=== PATIENT | male | born 1955 | race Caucasian/White ===

== ENCOUNTER → 2019-03-07 | Outpatient (CLI) | payer OTHER ==
[~2019-03-07] MED LIST: PROHANCE 279.3MG/ML 15ML VIAL (A9576) As Ordered ONE
--- NOTE | 2019-03-07 09:40 | REP ---
MRI of the brain without and with contrast Indication: Hearing loss. Sensorineural hearing loss, bilateral. Comparison: None Technique: MRI of the brain was performed without and with contrast utilizing IAC protocol. A total of 14.4 ml of ProHance was administered intravenously. Findings: Brain: There is no restricted diffusion to suggest acute ischemia or infarction. The ventricles and sulci are symmetric. There is no extra-axial fluid collection. There is no mass effect. There is no midline shift or basal cistern effacement. The visualized flow voids are preserved. The visualized paranasal sinuses are clear. IACs: The external auditory canals, middle ears cavities and internal auditory canals are unremarkable. The semicircular canals and cochlea are normal in signal intensity. There is no cerebellar pontine angle mass. There is no abnormal enhancement. Impression: Unremarkable MRI of the brain and internal auditory canals. No abnormal enhancement. Electronically Signed by Ninoska Burdick MD 03/07/2019 09:32 A
== END ==
LOC: M RAD 07:46
PROVIDERS: ATTEND Otolaryngology
DX: H91.90 Unspecified hearing loss, unspecified ear (principal)

== ENCOUNTER → 2019-03-28 | Outpatient (REF) | payer OTHER ==
[2019-03-28 13:37] LABS: PERCENT SATURATION 40.1 % (19.7-50.0)
== END ==
LOC: M LAB REF 12:42
PROVIDERS: ATTEND Internal Medicine
DX: M25.562 Pain in left knee (principal); M17.10 Unilateral primary osteoarthritis, unspecified knee; Z01.818 Encounter for other preprocedural examination; D63.8 Anemia in other chronic diseases classified elsewhere

== ENCOUNTER → 2019-09-04 | Outpatient (REF) | payer OTHER ==
[2019-09-04 17:38] LABS: ALBUMIN 4.5 GM/DL (3.2-5.2); PHOSPHORUS LEVEL 2.6 MG/DL (2.5-4.9)
== END ==
LOC: M LAB REF 16:20
PROVIDERS: ATTEND Internal Medicine
DX: B35.1 Tinea unguium (principal); Z79.899 Other long term (current) drug therapy

== ENCOUNTER → 2022-06-01 | Outpatient (CLI) | payer MEDICARE, OTHER ==
[~2022-06-01] MED LIST changes: +BENA25CA4 PO; +DYMI137S; +FLUTISP; +NAPR-885 PO; +OMEP-173 PO; -PROHANCE 279.3MG/ML 15ML VIAL (A9576) As Ordered ONE
== END ==
LOC: M LABSMTC 10:31
PROVIDERS: ATTEND Anesthesiology
DX: Z01.818 Encounter for other preprocedural examination (principal); Z11.52 Encounter for screening for COVID-19

== ENCOUNTER → 2022-08-31 | Outpatient (CLI) | payer MEDICARE, OTHER | LOC: M LABSMTC 09:59 | PROVIDERS: ATTEND Anesthesiology | DX: Z01.818 Encounter for other preprocedural examination (principal); Z11.52 Encounter for screening for COVID-19 ==

== ENCOUNTER 2022-09-02 08:08 | Day surgery (SDC) | payer MEDICARE, OTHER ==
[~2022-09-02] VITALS: Ht 175.3 cm; Wt 72.6 kg
[~2022-09-02 08:08] MED LIST changes: +NS 1,000 ML IV ONE
[2022-09-02] MEDS ORDERED: propofoL 200 MG/20 ML VIAL As Ordered ONE (08:53)
[2022-09-02] MEDS ORDERED: LIDOCAINE 2% 100MG/5ML SDV (FOR ANES.) As Ordered ONE (08:53)
[2022-09-02 10:15] VITALS: BP 115/68
== END 2022-09-02 10:33 | disposition home or self-care (01) ==
LOC: M OPP 08:08
PROVIDERS: ATTEND Internal Medicine Gastroenterology
DX: R19.5 Other fecal abnormalities (principal); Z79.1 Long term (current) use of non-steroidal anti-inflammatories (NSAID); Z79.52 Long term (current) use of systemic steroids; Z79.899 Other long term (current) drug therapy; Z87.891 Personal history of nicotine dependence; Z86.13 Personal history of malaria

== ENCOUNTER 2024-04-24 07:35 | Day surgery (SDC) | payer MEDICARE, OTHER ==
[~2024-04-24] VITALS: Ht 175.3 cm; Wt 72.7 kg
[~2024-04-24 07:35] MED LIST changes: +ATOR40TA75 PO; +ATROPINE SULFATE 1% OPHTH SOLN 2ML BTL OD SCH; +FLURBIPROFEN 0.03% OPHTH SOLN 2.5 ML OD SCH; +LR 1,000 ML IV SCH; -NS 1,000 ML IV ONE; +PHENYLEPHRINE 2.5% OPHTH SOL 2ML OD SCH; +TAMS1CAP17 PO; +TETRACAINE 0.5% OPHTH SOLN 4ML OD SCH; +fentaNYL 100 MCG/2 ML INJECTION As Ordered ONE
[2024-04-24] MEDS: LIDOCAINE 1% SDV 5ML VIAL As Ordered ONE (09:26)
[2024-04-24] MEDS: CEFUROXIME 1MG/0.1ML INTRACAMERAL INJ As Ordered ONE (09:27)
[2024-04-24 09:45] VITALS: BP 141/79; TEMP 97.9; O2SAT 99
== END 2024-04-24 10:06 | disposition home or self-care (01) ==
LOC: M SDC 07:35
PROVIDERS: ATTEND Ophthalmology
DX: H25.11 Age-related nuclear cataract, right eye (principal); Z79.899 Other long term (current) drug therapy; Z87.891 Personal history of nicotine dependence
CPT/HCPCS: 66984; J0697; J3010; V2632

== ENCOUNTER → 2024-07-21 | Outpatient (CLI) | payer MEDICARE, OTHER ==
[~2024-07-21] MED LIST changes: -ATROPINE SULFATE 1% OPHTH SOLN 2ML BTL OD SCH; -FLURBIPROFEN 0.03% OPHTH SOLN 2.5 ML OD SCH; -LR 1,000 ML IV SCH; -PHENYLEPHRINE 2.5% OPHTH SOL 2ML OD SCH; -TETRACAINE 0.5% OPHTH SOLN 4ML OD SCH; -fentaNYL 100 MCG/2 ML INJECTION As Ordered ONE
== END ==
LOC: M WUC 10:44
PROVIDERS: ATTEND Physician Assistant
DX: S63.621A Sprain of interphalangeal joint of right thumb, initial encounter (principal); Y93.9 Activity, unspecified; Y92.9 Unspecified place or not applicable; Y99.9 Unspecified external cause status

== ENCOUNTER → 2024-08-21 | Outpatient (CLI) | payer MEDICARE, OTHER | LOC: M RAD 10:11 | PROVIDERS: ATTEND Nurse Practitioner Family | DX: R94.5 Abnormal results of liver function studies (principal) ==

== ENCOUNTER → 2024-09-27 | Outpatient (CLI) | payer MEDICARE, OTHER | LOC: M WUC 10:36 | PROVIDERS: ATTEND Physician Assistant | DX: M19.012 Primary osteoarthritis, left shoulder (principal) ==